=== PATIENT | female | born 1995 | race Caucasian/White ===

== ENCOUNTER 2020-10-23 13:29 | Emergency (ER) | payer OTHER ==
[~2020-10-23] VITALS: Ht 170 cm; Wt 86.0 kg
[2020-10-23 14:12] LABS: BASOPHILS % (AUTO) 0 % (0-10); EOSINOPHILS % (AUTO) 0 % (0-10); HEMATOCRIT 32 % (35-52); HEMOGLOBIN 10.7 g/dL (11.5-16.0); LYMPHOCYTES # (AUTO) 2.1 10^3/uL (1.0-4.0); LYMPHOCYTES % (AUTO) 22 % (12-44); MEAN CORPUSCULAR HEMOGLOBIN 28 pg (25-34); MEAN CORPUSCULAR HGB CONC 33 g/dL (32-36); MEAN CORPUSCULAR VOLUME 85 fL (80-99); MEAN PLATELET VOLUME 9.6 fL (9.0-12.2); MONOCYTES # (AUTO) 0.4 10^3/uL (0.0-1.0); MONOCYTES % (AUTO) 4 % (0-12); NEUTROPHILS % (AUTO) 73 % (42-75); PLATELET COUNT 265 10^3/uL (130-400); WHITE BLOOD COUNT 9.6 10^3/uL (4.3-11.0)
[2020-10-23] MEDS ORDERED: KETOROLAC 30 MG/ML VIAL IVP STA (14:26)
[2020-10-23] MEDS ORDERED: LACTATED RINGERS 1,000 ML IV ONE (14:30)
--- NOTE | 2020-10-23 14:47 | ED GU-Female ---
General Chief Complaint: OB < 20 WEEKS Stated Complaint: MISCARRIAGE, VAGINAL BLEEDING Nursing Triage Note: PT TO ED W/ C/O POSS MISCARRIAGE. SEE ASSESSMENT Nursing Sepsis Screen: No Definite Risk Source: patient Exam Limitations: no limitations History of Present Illness Date Seen by Provider: Oct 23, 2020 Time Seen by Provider: 14:00 Initial Comments Here with report of ongoing miscarriage. She was seen by Dr. Avila and had ultrasound which was concerning for demise and miscarriage. She was told that she was going to have a miscarriage and to seek care for significant bleeding. Patient reports that she is bleeding a fair amount and states that she is having change pad or diaper every 1-2 hours. Does complain of some lower abdominal cramping consistent with miscarriage. Denies fever chills or other presenting symptoms. Timing/Duration: yesterday, getting worse Severity/Quality: moderate, cramping Location: suprapubic Radiation: none Activities at Onset: none Prior Genitourinary Problems: none Sexual [place] History: less than 2 months ago Modifying Factors: Improves With Resting Associated Symptoms: No dysuria, No fever/chills; lower back pain; No urinary frequency Allergies and Home Medications Allergies Coded Allergies: No Known Drug Allergies (Unverified , 10/23/20) Patient Home Medication List Home Medication List Reviewed: Yes Review of Systems Review of Systems Constitutional: see HPI; No chills, No fever EENTM: no symptoms reported Respiratory: no symptoms reported Cardiovascular: no symptoms reported Gastrointestinal: abdominal pain, constipation; No nausea, No vomiting Genitourinary: no symptoms reported : Yes Musculoskeletal: back pain (Low back pain); No neck pain All Other Systemes Reviewed Negative Unless Noted: Yes Past Lephkou-Hgvgpl-Xkpmjm Hx Past Med/Social Hx: Reviewed Nursing Past Med/Soc Hx Patient Social History Alcohol Use: Denies Use Smoking Status: Never a Smoker Recent Infectious Disease Expo: No Recent Hopitalizations: No Past Medical History Surgeries: Yes (DENTAL) Adenoidectomy, Ear Surgery, Orthopedic, Tonsillectomy Respiratory: No Cardiac: No Neurological: No Hx : 1 Hx Para: 0 Genitourinary: No Gastrointestinal: No Musculoskeletal: No Endocrine: No HEENT: No Cancer: No Psychosocial: No Integumentary: No Blood Disorders: No Family Medical History Reviewed Nursing Family Hx Physical Exam Vital Signs Vital Signs - First Documented 10/23/20 13:40 Temp 36.3 Pulse 104 Resp 20 B/P (MAP) 114/78 (90) Pulse Ox 98 O2 Delivery Room Air Capillary Refill : Less Than 3 Seconds Height, Weight, BMI Height: '" Weight: lbs. oz. kg; 29.00 BMI Method: General Appearance: WD/WN, no apparent distress Cardiovascular: regular rate, rhythm, no murmur Respiratory: lungs clear, normal breath sounds Gastrointestinal: non tender, soft Pelvic: other (Vaginal bleeding noted. Blood and clots in the vaginal vault without significant ooze. Tissue noted at cervical os that did not pull out with gentle tug. Patient is obviously incomplete miscarriage in progress.) Back: normal inspection, no CVA tenderness, no vertebral tenderness Extremities: non-tender, normal inspection Neurologic/Psychiatric: alert, oriented x 3 Skin: normal color, warm/dry Progress/Results/Core Measures Suspected Sepsis Recent Fever Within 48 Hours: No Infection Criteria Present: None New/Unexplained Altered Menta: No Sepsis Screen: No Definite Risk SIRS Temperature: Pulse: 104 Respiratory Rate: 20 Laboratory Tests 10/23/20 13:48: White Blood Count 9.6 Blood Pressure 114 /78 Mean: 90 Laboratory Tests 10/23/20 13:48: Platelet Count 265 Results/Orders Lab Results Laboratory Tests Test 10/23/20 13:48 Range/Units White Blood Count 9.6 4.3-11.0 10^3/uL Red Blood Count 3.81 3.80-5.11 10^6/uL Hemoglobin 10.7 L 11.5-16.0 g/dL Hematocrit 32 L 35-52 % Mean Corpuscular Volume 85 80-99 fL Mean Corpuscular Hemoglobin 28 25-34 pg Mean Corpuscular Hemoglobin Concent 33 32-36 g/dL Red Cell Distribution Width 14.0 10.0-14.5 % Platelet Count 265 130-400 10^3/uL Mean Platelet Volume 9.6 9.0-12.2 fL Immature Granulocyte % (Auto) 0 % Neutrophils (%) (Auto) 73 42-75 % Lymphocytes (%) (Auto) 22 12-44 % Monocytes (%) (Auto) 4 0-12 % Eosinophils (%) (Auto) 0 0-10 % Basophils (%) (Auto) 0 0-10 % Neutrophils # (Auto) 7.0 1.8-7.8 10^3/uL Lymphocytes # (Auto) 2.1 1.0-4.0 10^3/uL Monocytes # (Auto) 0.4 0.0-1.0 10^3/uL Eosinophils # (Auto) 0.0 0.0-0.3 10^3/uL Basophils # (Auto) 0.0 0.0-0.1 10^3/uL Immature Granulocyte # (Auto) 0.0 0.0-0.1 10^3/uL Human Chorionic Gonadotropin, Quant 1919 H <5 MIU/ML My Orders Orders - LISETTE SAEED MD Ed Iv/Invasive Line Start (10/23/20 14:26) Lactated Ringers (Lr 1000 Ml Iv Solution (10/23/20 14:30) Ketorolac Injection (Toradol Injection) (10/23/20 14:26) Misoprostol Tablet (Cytotec Tablet) (10/23/20 16:00) Medications Given in ED Current Medications Medications Dose Ordered Sig/Pretty Route Start Time Stop Time Status Last Admin Dose Admin Lactated Ringer's 1,000 ml @ 0 mls/hr Q0M ONCE IV 10/23/20 14:30 10/23/20 14:31 DC 10/23/20 14:48 0 MLS/HR Misoprostol 800 mcg ONCE ONCE PO 10/23/20 16:00 10/23/20 16:01 10/23/20 15:54 800 MCG Vital Signs/I&O 10/23/20 13:40 Temp 36.3 Pulse 104 Resp 20 B/P (MAP) 114/78 (90) Pulse Ox 98 O2 Delivery Room Air Capillary Refill : Less Than 3 Seconds Blood Pressure Mean: 90 Progress Note : Progress Note Seen and evaluated. IV, labs, LR 1 L bolus, Toradol 30 mg IV ordered. Anticipate pelvic exam. Monitor patient. 1557: Pelvic was completed and tissue noted at cervical os. I do believe this is incomplete miscarriage although should complete. I did try to gently pull with forceps and tissue was encapsulated within the cervix. I did discuss the case with Dr. Marinelli and she is recommending misoprostol 800 mg p.o. now and may repeat in 12 hours if miscarriage is not complete. I did discuss this with the patient as Dr. Marinelli mentioned it was the patient's option as this may hasten the miscarriage. Patient is in agreement. This was ordered and I will send out prescription for repeat dosing for 12 hours if not complete. She is overall doing better now. Labs reviewed and do not show significant abnormalities. Hemoglobin is 10.7. Pain is improved after Toradol earlier. Discharged home with return precautions. Patient verbalized understanding of instructions and agreement with plan. Departure Impression Primary Impression: Incomplete miscarriage Disposition: HOME, SELF-CARE Condition: Stable Departure-Patient Inst. Decision time for Depature: 16:00 Referrals: RALPH GRAMAJO MD (PCP/Family) Primary Care Physician Patient Instructions: Miscarriage (DC), Dealing With Miscarriage Add. Discharge Instructions: All discharge instructions reviewed with patient and/or family. Voiced understanding. You were given medication to help quicken the miscarriage. If the miscarriage is not complete within the next 12 hours, you may repeat the dose x1. Call Dr. Avila's office in the morning and let them know your current situation and continue with appointment on Saturday or earlier if directed. Return for worse pain, fever, vomiting, bleeding greater than 2 pads per hour for more than 2 hours, weakness, dizziness or other concerns as needed. You may take Tylenol/acetaminophen 1000 mg every 6-8 hours as needed for pain. You may take ibuprofen 800 mg every 8 hours as needed for pain. Scripts Misoprostol (Misoprostol) 200 Mcg Tablet 800 MCG PO ONCE, #4 TAB You may take dose after 4 AM if miscarriage not complete. Prov: LISETTE SAEED MD 10/23/20 Copy Copies To 1: RENETTA AVILA TIMOTHY D MD Oct 23, 2020 14:47
[2020-10-23] MEDS ORDERED: MISO200T66 PO (16:04)
[2020-10-23 16:20] VITALS: BP 117/76
== END 2020-10-23 16:20 | disposition home or self-care (01) ==
LOC: ER 13:34
DX: O03.4 Incomplete spontaneous abortion without complication (principal)
CPT/HCPCS: 36415; 84702; 85025; 86900; 86901